=== PATIENT | male | born 2000 | race Two or more races ===

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

== ENCOUNTER 2022-09-30 02:36 | Emergency (ER) | payer OTHER ==
[~2022-09-30] VITALS: Ht 172.7 cm; Wt 59.0 kg
[~2022-09-30 02:36] MED LIST: MIRALAX510 GM PO
[2022-09-30] MEDS ORDERED: PROTONIX20 MG (02:42)
[2022-09-30] MEDS ORDERED: CIPRO500 MG PO (09:57)
== END 2022-09-30 10:13 | disposition home or self-care (01) ==
LOC: EMR PED 02:36 → ER 02:37
DX: K21.9 Gastro-esophageal reflux disease without esophagitis (principal); Z20.822 Contact with and (suspected) exposure to COVID-19